=== PATIENT | male | born 1990 | race Caucasian/White ===

== ENCOUNTER 2018-02-25 23:21 | Emergency (ER) | payer SELFPAY, OTHER ==
[2018-02-26] MEDS: KETOROLAC 15 MG INJ IM (04:14)
[2018-02-26] MEDS ORDERED: LIDOCAINE/MYLANTA 4 ML (PO SYG) PO (04:30)
[2018-02-26] MEDS: RANITIDINE 150 MG TAB PO (04:34)
[2018-02-26] MEDS: LIDOCAINE/MYLANTA 40 ML BTL PO (04:36)
== END 2018-02-26 05:19 | disposition home or self-care (01) ==
LOC: FTE 23:21
DX: R10.13 Epigastric pain (principal); F10.220 Alcohol dependence with intoxication, uncomplicated; R11.10 Vomiting, unspecified
CPT/HCPCS: 96372; 99284-25; J1885